=== PATIENT | female | born 1985 | race Caucasian/White ===

== ENCOUNTER 2017-06-26 16:23 | Emergency (ER) | payer OTHER ==
[~2017-06-26] VITALS: Ht 162.6 cm; Wt 72.6 kg
== END 2017-06-26 18:59 | disposition home or self-care (01) ==
LOC: ER 16:23
DX: J11.1 Influenza due to unidentified influenza virus with other respiratory manifestations (principal); J06.9 Acute upper respiratory infection, unspecified

== ENCOUNTER 2017-09-30 10:09 | Outpatient (CLI) | payer OTHER | END 2017-09-30 10:18 | disposition home or self-care (01) | LOC: SONOGRAMA 10:09 → MAMO-SONO 11:15 | DX: Z34.00 Encounter for supervision of normal first pregnancy, unspecified trimester (principal) ==

== ENCOUNTER 2018-01-06 13:45 | Inpatient (IN) | payer OTHER ==
[~2018-01-06] VITALS: Ht 162.6 cm; Wt 80.3 kg
[2018-01-26] MEDS ORDERED: PRENATAL TABLE1 EAC2 PO (11:39)
== END 2018-01-28 11:31 | disposition home or self-care (01) | DRG 775 ==
LOC: LDR 01-26 05:53 → OB/GYN 01-26 19:29
PROC: 10E0XZZ Delivery of Products of Conception, External Approach (ICD-10-PCS; principal; 2018-01-26)
PROC: 0W8NXZZ Division of Female Perineum, External Approach (ICD-10-PCS; 2018-01-26)
PROC: 4A1HXCZ Monitoring of Products of Conception, Cardiac Rate, External Approach (ICD-10-PCS; 2018-01-26)
DX: O80 Encounter for full-term uncomplicated delivery (principal); Z3A.39 39 weeks gestation of pregnancy; Z37.0 Single live birth

== ENCOUNTER 2020-10-03 19:34 | Emergency (ER) | payer OTHER ==
[~2020-10-03] VITALS: Ht 165.1 cm; Wt 74.4 kg
[~2020-10-03 19:34] MED LIST: PRENATAL TABLE1 EAC2 PO
[2020-10-03] MEDS ORDERED: TUSNEL LIQUID178 ML PO (21:47)
[2020-10-03] MEDS ORDERED: ALBUTEROL2.5 MG/3 M IH (21:47)
[2020-10-03] MEDS ORDERED: ZITHROMAX500 MG PO (21:47)
== END 2020-10-03 23:27 | disposition home or self-care (01) ==
LOC: ER 19:34
DX: J45.998 Other asthma (principal)